=== PATIENT | female | born 1985 | race Caucasian/White ===

== ENCOUNTER → 2019-05-26 | Outpatient (CLI) | payer OTHER, SELFPAY ==
[~2019-05-26] MED LIST: DICL75ER
[2019-05-28 16:07] LABS: HPV 16 Negative (Negative); HPV 18 Negative (Negative); HPV OTHER HR TYPES Negative (Negative)
== END | disposition home or self-care (01) ==
LOC: LAB 16:35 → LAB SHORT 16:35
PROVIDERS: Nurse Practitioner Women's Health
DX: Z12.4 Encounter for screening for malignant neoplasm of cervix (principal)
CPT/HCPCS: 87624; G0123

== ENCOUNTER 2019-07-27 11:13 | Day surgery (SDC) | payer OTHER, SELFPAY ==
[~2019-07-27] VITALS: Ht 172.7 cm; Wt 118.1 kg
== END 2019-07-27 15:12 | disposition home or self-care (01) ==
LOC: ORSCSDS 11:13
PROVIDERS: Podiatrist Foot & Ankle Surgery
PROC: 0JNR0ZZ Release Left Foot Subcutaneous Tissue and Fascia, Open Approach (ICD-10-PCS; principal; 2019-07-27 12:30)
PROC: 0L8P0ZZ Division of Left Lower Leg Tendon, Open Approach (ICD-10-PCS; principal; 2019-07-27 12:30)
DX: M72.2 Plantar fascial fibromatosis (principal); M24.572 Contracture, left ankle; E66.01 Morbid (severe) obesity due to excess calories; Z68.39 Body mass index [BMI] 39.0-39.9, adult
CPT/HCPCS: J0171; J0690; J1100; J1885; J2250; J2405; J2704; J2765; J3010; J7120

== ENCOUNTER 2019-10-19 00:10 | Day surgery (SDC) | payer OTHER, SELFPAY ==
[2019-10-19 11:36] LABS: BASOPHILS ABSOLUTE AUTO 0.07 K/mm3 (0.00-0.23); BASOPHILS PERCENT AUTO 1 % (0-2); EOSINOPHILS ABSOLUTE AUTO 0.17 K/mm3 (0.00-0.68); EOSINOPHILS PERCENT AUTO 1 % (0-6); Hematocrit 39.8 % (33.0-51.0); Hemoglobin 12.8 g/dL (11.5-16.0); IMMATURE GRAN ABSOLUTE AUTO 0.08 K/mm3 (0.00-0.10); IMMATURE GRAN PERCENT AUTO 1 % (0-1); LYMPHOCYTES PERCENT AUTO 37 % (21-46); MONOCYTES ABSOLUTE AUTO 0.81 K/mm3 (0.16-1.47); MONOCYTES PERCENT AUTO 7 % (4-13); Mean Corpuscular HGB 28.7 pg (26.0-34.0); Mean Corpuscular HGB Conc 32.2 g/dL (31.5-36.5); Mean Corpuscular Volume 89 fL (80-100); Mean Platelet Volume 9.5 fL (9.1-12.4); NEUTROPHILS ABSOLUTE AUTO 6.52 K/mm3 (1.96-9.15); NEUTROPHILS PERCENT AUTO 54 % (41-73); Platelet Count 456 K/mm3 (150-400); RDW Coefficient Variation 12.3 % (11.7-14.2); RDW Standard Deviation 40.5 fL (35.1-46.3); Red Blood Cell Count 4.46 M/mm3 (3.80-5.20); White Blood Cell Count 12.05 K/mm3 (4.00-11.30)
[2019-10-19 11:58] LABS: Alanine Aminotransfer (ALT/SGP 39 U/L (12-78); Albumin, Blood 3.9 g/dL (3.4-5.0); Albumin/Globulin Ratio 0.9 (0.8-1.8); Alk Phos 103 U/L (50-136); Anion Gap 5 mmol/L (6-16); Aspartate Aminotrans (AST/SGOT 17 U/L (12-37); Bilirubin, Total 0.3 mg/dL (0.1-1.0); Blood Urea Nitrogen 14 mg/dL (8-24); Bun/Creatinine Ratio 21.8 (12.0-20.0); CO2, Blood 28 mmol/L (21-32); Calcium, Blood 8.8 mg/dL (8.5-10.1); Chloride, Blood 106 mmol/L (98-108); Creatinine, Blood 0.64 mg/dL (0.40-1.00); Globulin, Blood 4.5 g/dL (2.2-4.0); Glomerular Filtration Rate >60 (60-); Glucose, Blood 119 mg/dL (70-99); Potassium, Blood 3.7 mmol/L (3.5-5.5); Sodium, Blood 139 mmol/L (136-145); Total Protein, Blood 8.4 g/dL (6.4-8.2)
[2019-10-19] MEDS ORDERED: ERGO50000 PO (12:03)
[2019-10-19] MEDS ORDERED: COPAXONE40 MG/1 ML INJ (12:05)
[2019-10-19] MEDS ORDERED: Prednisone10 MG PO (12:06)
[2019-10-20] MEDS ORDERED: Solu-Medrol1000 MG IV (09:25)
== END 2019-10-19 12:30 | disposition home or self-care (01) ==
LOC: ATC 00:10
PROVIDERS: Student in an Organized Health Care Education/Training Program
DX: G35 Multiple sclerosis (principal); E55.9 Vitamin D deficiency, unspecified; R73.03 Prediabetes; E66.01 Morbid (severe) obesity due to excess calories; F32.9 Major depressive disorder, single episode, unspecified; Z79.899 Other long term (current) drug therapy; Z68.30 Body mass index [BMI] 30.0-30.9, adult
CPT/HCPCS: 80053; 85025; 96365; J2930

== ENCOUNTER 2019-10-20 00:08 | Day surgery (SDC) | payer OTHER, SELFPAY ==
[~2019-10-20 00:08] MED LIST changes: +COPAXONE40 MG/1 ML INJ; +ERGO50000 PO; +Prednisone10 MG PO
[2019-10-20] MEDS ORDERED: Solu-Medrol1000 MG IV (09:25)
[2019-10-20 10:54] LABS: Bilirubin, Urine Neg (Neg); Blood, Urine Neg (Neg); Glucose Qualitative, Urine Neg (Neg); Ketones, Urine 1+ (Neg); Leukocyte Esterase, Urine Neg (Neg); Nitrite, Urine Neg (Neg); Protein, Urine 1+ (Neg); Specific Gravity, Urine 1.015 (1.003-1.022); Urobilinogen, Urine NORM (Normal); pH, Urine 6.5 (5.0-8.0)
[2019-10-20 11:05] LABS: Appearance, Urine Clear (Clear); Color, Urine Yellow (P-Yellow)
== END 2019-10-20 09:50 | disposition home or self-care (01) ==
LOC: ATC 00:08
PROVIDERS: Student in an Organized Health Care Education/Training Program
DX: G35 Multiple sclerosis (principal); E55.9 Vitamin D deficiency, unspecified; R73.03 Prediabetes; F32.9 Major depressive disorder, single episode, unspecified; E66.01 Morbid (severe) obesity due to excess calories; H53.469 Homonymous bilateral field defects, unspecified side; Z79.52 Long term (current) use of systemic steroids; Z79.899 Other long term (current) drug therapy; Z85.858 Personal history of malignant neoplasm of other endocrine glands
CPT/HCPCS: 96365; J2930

== ENCOUNTER 2019-10-21 00:19 | Day surgery (SDC) | payer OTHER, SELFPAY ==
[~2019-10-21 00:19] MED LIST changes: +Solu-Medrol1000 MG IV
[2019-10-22] MEDS ORDERED: VITAMIN D35000 UNI2 PO (11:46)
== END 2019-10-21 11:20 | disposition home or self-care (01) ==
LOC: ATC 00:19
DX: G35 Multiple sclerosis (principal); E55.9 Vitamin D deficiency, unspecified; R73.03 Prediabetes; F32.9 Major depressive disorder, single episode, unspecified; E66.01 Morbid (severe) obesity due to excess calories; Z79.2 Long term (current) use of antibiotics; Z79.899 Other long term (current) drug therapy
CPT/HCPCS: 96365; J2930

== ENCOUNTER 2019-10-22 10:58 | Day surgery (SDC) | payer OTHER, SELFPAY ==
[2019-10-22] MEDS ORDERED: VITAMIN D35000 UNI2 PO (11:46)
== END 2019-10-22 11:51 | disposition home or self-care (01) ==
LOC: ATC 10:58
DX: G35 Multiple sclerosis (principal); E55.9 Vitamin D deficiency, unspecified; R73.03 Prediabetes; F32.9 Major depressive disorder, single episode, unspecified; H53.469 Homonymous bilateral field defects, unspecified side; E66.01 Morbid (severe) obesity due to excess calories; Z79.52 Long term (current) use of systemic steroids; Z79.899 Other long term (current) drug therapy
CPT/HCPCS: 96365; J2930

== ENCOUNTER 2023-02-16 00:50 | Day surgery (SDC) | payer OTHER ==
[~2023-02-16 00:50] MED LIST changes: +VITAMIN D35000 UNI2 PO
[2023-02-16 11:59] LABS: Source, Urine Clean Catch
[2023-02-16 12:07] LABS: Appearance, Urine Clear (Clear); Bilirubin, Urine Neg (Neg); Blood, Urine Neg (Neg); Color, Urine Yellow (P-Yellow); Glucose Qualitative, Urine Neg (Neg); Ketones, Urine Neg (Neg); Leukocyte Esterase, Urine Neg (Neg); Nitrite, Urine Neg (Neg); Protein, Urine Neg (Neg); Urobilinogen, Urine NORM (Normal)
[2023-02-16 12:09] LABS: BASOPHILS ABSOLUTE AUTO 0.05 K/mm3 (0.00-0.23); BASOPHILS PERCENT AUTO 1 % (0-2); EOSINOPHILS ABSOLUTE AUTO 0.12 K/mm3 (0.00-0.68); EOSINOPHILS PERCENT AUTO 1 % (0-6); Hematocrit 36.4 % (33.0-51.0); Hemoglobin 12.1 g/dL (11.5-16.0); IMMATURE GRAN ABSOLUTE AUTO 0.03 K/mm3 (0.00-0.10); IMMATURE GRAN PERCENT AUTO 0 % (0-1); LYMPHOCYTES ABSOLUTE AUTO 3.08 K/mm3 (0.84-5.20); LYMPHOCYTES PERCENT AUTO 35 % (21-46); MONOCYTES ABSOLUTE AUTO 0.81 K/mm3 (0.16-1.47); MONOCYTES PERCENT AUTO 9 % (4-13); Mean Corpuscular HGB 29.2 pg (26.0-34.0); Mean Corpuscular HGB Conc 33.2 g/dL (31.5-36.5); Mean Corpuscular Volume 88 fL (80-100); Mean Platelet Volume 9.7 fL (9.1-12.4); NEUTROPHILS ABSOLUTE AUTO 4.64 K/mm3 (1.96-9.15); NEUTROPHILS PERCENT AUTO 53 % (41-73); Platelet Count 421 K/mm3 (150-400); RDW Coefficient Variation 12.3 % (11.7-14.2); RDW Standard Deviation 39.7 fL (35.1-46.3); Red Blood Cell Count 4.15 M/mm3 (3.80-5.20); White Blood Cell Count 8.73 K/mm3 (4.00-11.30)
[2023-02-16 12:21] LABS: Albumin, Blood 3.8 g/dL (3.4-5.0); Bilirubin, Total 0.4 mg/dL (0.1-1.0); Bun/Creatinine Ratio 20.9 (12.0-20.0); Calcium, Blood 8.7 mg/dL (8.5-10.1); Creatinine, Blood 0.67 mg/dL (0.40-1.00); Globulin, Blood 3.9 g/dL (2.2-4.0); Potassium, Blood 3.8 mmol/L (3.5-5.5); Total Protein, Blood 7.7 g/dL (6.4-8.2)
[2023-02-16] MEDS ORDERED: METHYLPREDNIS1000 M1 IV (16:28)
[2023-02-16] MEDS ORDERED: PROZAC40 MG PO (16:30)
[2023-02-16] MEDS ORDERED: Ventolin/Prove6.7 GM INH (16:31)
== END 2023-02-16 11:46 | disposition home or self-care (01) ==
LOC: ATC 00:50
PROVIDERS: Student in an Organized Health Care Education/Training Program
DX: G35 Multiple sclerosis (principal)
CPT/HCPCS: 80053; 81003; 85025; 96365; J2930

== ENCOUNTER 2023-02-17 00:54 | Day surgery (SDC) | payer OTHER ==
[~2023-02-17 00:54] MED LIST changes: +METHYLPREDNIS1000 M1 IV; +PROZAC40 MG PO; +Ventolin/Prove6.7 GM INH
[2023-02-17 10:56] VITALS: BP 114/69
== END 2023-02-17 11:26 | disposition home or self-care (01) ==
LOC: ATC 00:54
DX: G35 Multiple sclerosis (principal)
CPT/HCPCS: 96365; J2930

== ENCOUNTER 2023-02-18 00:56 | Day surgery (SDC) | payer OTHER ==
[2023-02-18 11:22] VITALS: BP 109/71
== END 2023-02-18 11:46 | disposition home or self-care (01) ==
LOC: ATC 00:56
DX: G35 Multiple sclerosis (principal); E66.01 Morbid (severe) obesity due to excess calories
CPT/HCPCS: 96365; J2930